=== PATIENT | male | born 1995 | race Caucasian/White ===

== ENCOUNTER 2021-09-22 14:06 | Emergency (ER) | payer BC ==
[2021-09-22 14:57] LABS: HEMOGLOBIN 15.2 gm/dl (14.0-17.5); RED BLOOD COUNT 4.84 M/UL (4.20-5.50); WHITE BLOOD COUNT 7.6 K/UL (4.5-11.0)
[2021-09-22 15:20] LABS: BUN/CREATININE RATIO 21 (0-10)
== END 2021-09-22 19:30 | disposition home or self-care (01) ==
LOC: ER1 14:06
PROVIDERS: Emergency Medicine
DX: R00.2 Palpitations (principal); Z87.442 Personal history of urinary calculi
CPT/HCPCS: 71045; 80053; 82550; 82553; 84484; 85025; 93005; 99285